=== PATIENT | male | born 1975 | race Caucasian/White ===

== ENCOUNTER 2019-11-27 21:32 | Emergency (ER) | payer BC, SELFPAY ==
[2019-11-27 21:35] VITALS: BP 130/74; PULSE 62; RESP 18; TEMP 36.7; O2SAT 96; BMI 23.6
== END 2019-11-27 22:10 | disposition home or self-care (01) ==
PROVIDERS: Emergency Provider Emergency Medicine; Family Provider Family Medicine
DX: Z53.21 Procedure and treatment not carried out due to patient leaving prior to being seen by health care provider (principal)
CPT/HCPCS: 99281

== ENCOUNTER 2021-09-21 12:03 | Outpatient (CLI) | payer OTHER, SELFPAY ==
[2021-09-21 12:55] VITALS: BP 119/82; PULSE 61; RESP 18; TEMP 36.9; O2SAT 97
[2021-09-21 13:03] VITALS: BP 133/98; PULSE 78; RESP 18; TEMP 36.9; O2SAT 98; BMI 24.3
[2021-09-21 13:55] VITALS: BP 123/65; PULSE 58; RESP 18; TEMP 36.8; O2SAT 95
== END 2021-09-21 12:04 | disposition home or self-care (01) ==
PROVIDERS: PCP Family Medicine; Visit Provider Family Medicine
DX: U07.1 COVID-19 (principal)
CPT/HCPCS: 96365

== ENCOUNTER → 2022-11-06 14:42 | Outpatient (BNVA) | payer MEDICAID, SELFPAY | PROVIDERS: PCP Family Medicine; Visit Provider Clinical Nurse Specialist Adult Health | DX: J06.9 Acute upper respiratory infection, unspecified (principal) | CPT/HCPCS: 87400 ==

== ENCOUNTER → 2024-09-30 15:34 | Outpatient (BNVA) | payer MEDICAID, SELFPAY | PROVIDERS: PCP Family Medicine; Visit Provider Orthopaedic Surgery | DX: M25.569 Pain in unspecified knee (principal) | CPT/HCPCS: 73560; 73565 ==